=== PATIENT | female | born 1960 | race Caucasian/White ===

== ENCOUNTER 2017-03-11 18:29 | Emergency (ER) | payer OTHER ==
[~2017-03-11] VITALS: Ht 160 cm; Wt 67.1 kg
--- NOTE | ~2017-03-11 | EKG ---
[address] [address] ELECTROCARDIOGRAM REPORT Name: OVI ISAAC Dm Room #: [facility] ANNISTONMood[facility]#: [id number] Admission: 03/11/17 Attend Phys: Discharge: Date of : 56 Report #: [id number] THIS REPORT FOR: //name// [facility] ED Test Date: 2017-03-11 Test Time: 19:19:28 Pat Name: OVI ISAAC Department: Room: Gender: F [employer]: [id number] : 1960 Requested By: Everett Scott Order Number: [id number] MD: Nate Agrawal Measurements Intervals [place] Rate: 71 P: 54 [place]: 159 QRS: 30 QRSD: 96 T: 14 QT: 404 QTc: 439 Interpretive Statements Sinus rhythm Electronically Signed On 03-11-2017 19:33:35 CDT by Nate Agrawal [email or web address] <ELECTRONICALLY SIGNED> By: Nate Agrawal MD 03/11/17 193 18 18 Nate Agrawal MD /EPI
[2017-03-11 18:49] LABS: ABSOLUTE NEUTROPHILS 8.2 thou/uL (1.4-8.2); BASOPHILS 1.4 % (0.0-2.0); EOSINOPHILS 0.4 % (0.0-3.0); LYMPHOCYTES 12.3 % (24.0-44.0); MCH 34.2 pg (26.0-34.0); MCV 97.9 fL (80.0-100.0); MONOCYTES 8.9 % (1.0-8.0); PLATELET COUNT 252 thou/uL (150-400); WBC 10.6 thou/uL (4.0-11.0)
[2017-03-11 18:56] LABS: MANUAL DIFF NO
[2017-03-11 18:58] LABS: ANION GAP 10 mmol/L (7-16); BUN 6 mg/dL (7-18); CHLORIDE 94 mmol/L (98-107); CO2 23 mmol/L (21-32); CREATININE 0.6 mg/dL (0.6-1.0); GLUCOSE 97 mg/dL (74-106); POTASSIUM 3.9 mmol/L (3.5-5.1); SODIUM 127 mmol/L (136-145)
[2017-03-11 19:06] LABS: ALBUMIN 3.3 g/dL (3.4-5.0); ALKALINE PHOSPHATASE 108 U/L (46-116); MAGNESIUM 1.7 mg/dL (1.8-2.4); SGOT 24 U/L (15-37); SGPT 19 U/L (30-65); TOTAL BILIRUBIN 0.3 mg/dL (<0.1-1.0); TOTAL PROTEIN 8.3 g/dL (6.4-8.2); TROPONIN-I < 0.04 ng/mL (<0.04-0.07)
[2017-03-11 19:07] LABS: APTT 30.3 Seconds (24.5-32.8)
[2017-03-11] MEDS ORDERED: COZAAR 50 MG TA50 M2 PO (19:13)
[2017-03-11] MEDS ORDERED: TEGRETOL200 MG PO (19:14)
[2017-03-11 20:24] VITALS: BP 147/95
== END 2017-03-11 20:28 | disposition short-term general hospital (02) ==
LOC: ER 18:29
PROVIDERS: Emergency Medicine
DX: I62.9 Nontraumatic intracranial hemorrhage, unspecified (principal); G50.0 Trigeminal neuralgia; G35 Multiple sclerosis; F17.210 Nicotine dependence, cigarettes, uncomplicated; I10 Essential (primary) hypertension; Z90.710 Acquired absence of both cervix and uterus